=== PATIENT | male | born 1995 | race Caucasian/White ===

== ENCOUNTER 2017-07-20 12:15 | Emergency (ER) | payer MEDICAID ==
[2017-07-20 12:17] VITALS: BMI 26.6
[2017-07-20 12:20] VITALS: RESP 18; TEMP 99.1
--- NOTE | 2017-07-20 12:32 | ED PDOC ---
Arrival/HPI - General Chief Complaint: ENT Problem Time Seen by Provider: 07/20/17 12:26 Historian: Patient - History of Present Illness Narrative History of Present Illness (Text): 07/20/17 13:03 pt p/w + 2 days onset of worsening body malaise/worsening fatigue, + sore throat , no coughing, + fever, + weakness; + mild decr appetite, no chills/sweats, no cp/sob/palpitations, no abd pain, no n/v, no numbness/tingling, no urinary/ bowel changes, no gross bleeding; no loc, no lightheadedness; pt denied fall/ trauma/sick contact, no travel. pt is here for further eval. pt's without other complaints. pt took 200mg of motrin with no relief 07/20/17 13:05 Time/Duration: < week (2 days) Symptom Onset: Sudden Symptom Course: Worsening Quality: Cramping Severity Level: Severe Context: Home Past Medical History - Provider Review Nursing Documentation Reviewed: Yes - Travel History Have you recently traveled outside [place] w/in the past 3 mons?: No - Past History Past History: No Previous - Infectious Disease Hx of Infectious Diseases: None - Tetanus Immunization Tetanus Immunization: Up to Date - Cardiac Hx Pacemaker: No - Neurological Hx Paralysis: No - Hematological/Oncological Hx Blood Transfusions: No Hx Blood Transfusion Reaction: No - Musculoskeletal/Rheumatological Hx Musculoskeletal Disorders: No - Psychiatric Hx Psychophysiologic Disorder: No Hx Anxiety: No Hx Bipolar Disorder: No Hx Depression: No Hx Emotional Abuse: No Hx Hallucinations: No Hx Panic Disorder: No Hx Post Traumatic Stress Disorder: No Hx Psychosis: No Hx Physical Abuse: No Hx Schizophrenia: No Hx Sexual Abuse: No Hx Substance Use: No - Surgical History Other/Comment: r ankle surgery. rhinoplasty - Anesthesia Hx Anesthesia: Yes Hx Anesthesia Reactions: No Hx Malignant Hyperthermia: No - Suicidal Assessment Feels Threatened In Home Enviroment: No Family/Social History Family/Social History: No Known Family HX Smoking Status: Never Smoked Hx Alcohol Use: No Hx Substance Use: No Hx Substance Use Treatment: No Allergies/Home Meds Allergies/Adverse Reactions: Allergies No Known Allergies Allergy (Verified 11/22/12 16:15) Review of Systems - Review of Systems Constitutional: Fatigue, Fevers Eyes: Normal ENT: Sore Throat. absent: Hearing Changes, TMJ Pain, Sinus Congestion Respiratory: absent: SOB, Cough Cardiovascular: Normal Gastrointestinal: Normal Genitourinary Male: Normal Musculoskeletal: Arthralgias, Back Pain, Myalgias Skin: Normal Neurological: Headache. absent: Dizziness Endocrine: Normal Hemo/Lymphatic: Normal Psychiatric: Normal Physical Exam Vital Signs Reviewed: Yes Vital Signs Temp Pulse Resp BP Pulse Ox 07/20/17 12:19 99.1 F 108 H 18 136/76 95 Temperature: Afebrile Blood Pressure: Normal Pulse: Tachycardic Respiratory Rate: Normal Appearance: Positive for: Well-Appearing, Other (alert/awake, GCS = 15, oriented x 3, NAD, mildly uncomfortable, cooperative, follows commands with ease ) Pain Distress: None Mental Status: Positive for: Alert and Oriented X 3 - Systems Exam Head: Present: Atraumatic, Normocephalic, Ecchymosis Pupils: Present: PERRL, Other (no photophobia, sclera anicteric, no nystagmus) Extroacular Muscles: Present: EOMI Conjunctiva: Present: Normal Ears: Present: Normal, NORMAL TM Mouth: Present: Moist Mucous Membranes, Normal Teeth, Other (no drooling/stridor , no exudate/lesions, intact dentitions, uvula/tongue are midline) Pharnyx: Present: Normal. No: ERYTHEMA, EXUDATE Nose (External): Present: Atraumatic Nose (Internal): Present: Normal Inspection Neck: Present: Normal Range of Motion, Trachea Midline, Other (no step off, no nuchal rigidity, no meningeal signs, intact ROM). No: MIDLINE TENDERNESS Respiratory/Chest: Present: Clear to Auscultation, Good Air Exchange, Other ( CTA b/l, no w/r/r, no accessory muscle use noted, no tachypenia) Cardiovascular: Present: Normal S1, S2, Tachycardic. No: Murmurs Abdomen: Present: Normal Bowel Sounds, Other (well nourished male, no focal tenderness, no cook's sign, no mcburney's point tenderness, no masses/rebound/ guarding/rigidity) Back: Present: Normal Inspection, Other (no midline tenderness, no step off). No: CVA Tenderness, Midline Tenderness Upper Extremity: Present: Normal Inspection, Normal ROM, NORMAL PULSES, Neurovascularly Intact, Capillary Refill < 2s Lower Extremity: Present: Normal Inspection, NORMAL PULSES, Normal ROM, Neurovascularly Intact, Capillary Refill < 2 s, Other (+ ambulatory) Neurological: Present: GCS=15, CN II-XII Intact, Speech Normal Skin: Present: Warm, Normal Color, Other (cap refill < 1sec, no ulcerations, no petechiae) Psychiatric: Present: Alert, Oriented x 3 Medical Decision Making ED Course and Treatment: 07/20/17 12:33 Impression: sore throat, body malaise, fever x 2 days i have consider all the differential diagnosis regarding pt's chief medical complaints/clinical findings, including but are not limited to: possible flu, unlikely pna, r/o strept A/P: body malaise, fever x 2 days, sore throat - rapid flu/strept - observe - supportive care 07/20/17 14:18 pt is doing well pt is comfortable pt is made aware of his medical results pt is encouraged fluids pt will f/u as directed pt will be discharged home Re-evaluation Time: 14:15 Reassessment Condition: Re-examined - Lab Interpretations Lab Results: Lab Results 07/20/17 12:48: Influenza Typ A,B (EIA) Negative for flu a/b, Grp A Beta Strep Ag Negative I have reviewed the lab results: Yes Interpretation: All labs normal - Medication Orders Current Medication Orders: Discontinued Medications Ibuprofen (Motrin Tab) 600 mg PO STAT STA Stop: 07/20/17 12:31 Last Admin: 07/20/17 12:48 Dose: 600 mg MAR Pain/Vitals Document 07/20/17 12:48 EQ (Rec: 07/20/17 12:48 EQ [facility] [place]-[id number]) Pain Reassessment Is This A Pain ReAssessment? No Sleep Is patient sleeping during reassessment? No Presence of Pain Presence of Pain Yes Oseltamivir Phosphate (Tamiflu Cap) 75 mg PO ONCE ONE PRN Reason: Protocol Stop: 07/20/17 12:31 Last Admin: 07/20/17 12:48 Dose: 75 mg Disposition/Present on Arrival - Present on Arrival Any Indicators Present on Arrival: No History of DVT/PE: No History of Uncontrolled Diabetes: No Urinary Catheter: No History of Decub. Ulcer: No History Surgical Site Infection Following: None - Disposition Have Diagnosis and Disposition been Completed?: Yes Diagnosis: Viral syndrome, Dehydration Disposition: HOME/ ROUTINE Disposition Time: 14:15 Patient Plan: Discharge Condition: STABLE Discharge Instructions (ExitCare): Viral Syndrome (ED), Weakness (ED) Print Language: MALTESE Additional Instructions: Make sure to see your doctor in 1-2 days DRINK PLENTY OF FLUIDS take your medications as prescribed RETURN TO ED IF worse pain, cant breath, persistent vomiting, high fever >101- 102 for hours, altered behavior, unable to urinate, heavy/persistent bleeding, passing out, chest pain, or other medical emergencies Prescriptions: Ibuprofen [Motrin] 600 mg PO TID PRN #30 tab PRN Reason: Pain, Moderate (4-7) Oseltamivir Phosphate [Tamiflu] 75 mg PO BID #9 capsule Referrals: PCP,NO [Non-Staff] - Follow up with primary [facility] at [facility] [place] [Outside] - Follow up with primary Forms: [place] (Mauritanian)
[2017-07-20 13:07] LABS: INFLUENZA A B NEGATIVE FOR FLU A/B (NEGATIVE)
[2017-07-20 14:35] VITALS: BP 126/71; PULSE 87; O2SAT 98
== END 2017-07-20 14:34 | disposition home or self-care (01) ==
LOC: ED 12:15
DX: B34.9 Viral infection, unspecified (principal); E86.0 Dehydration